=== PATIENT | male | born 1965 | race Caucasian/White ===

== ENCOUNTER 2019-05-28 10:18 | Emergency (ER) | payer SELFPAY ==
--- NOTE | 2019-05-28 10:28 | ER Document Report ---
ED General - General Stated Complaint: CHEST PAIN Time Seen by Provider: 05/28/19 10:23 Notes: 54-year-old male presents with chest pain. Gradual onset yesterday, left-sided radiating to the shoulder and neck has become 10 out of 10. Worse with palpation breathing and position. Similar to past pericarditis but slightly different. Positive shortness of breath and nausea, diaphoretic. EMS gave fentanyl only. EKG, per them, was normal. Allergic to NSAIDs no aspirin or nitro given. - Related Data Allergies/Adverse Reactions: NSAIDS (Non-Steroidal Anti-Inflamma Allergy (Unknown, Verified 05/28/19 10:38) Past Medical History - Social History Smoking Status: Current Every Day Smoker Smoking Education Provided: Yes - The patient ED visit today was directly related to their abuse of tobacco. Family History: None Review of Systems - Review of Systems Notes: REVIEW OF SYSTEMS GEN: Denies fever, chills, weight loss ENT: Denies sore throat, nasal discharge, ear pain EYES: Denies blurry vision, eye pain, discharge CV: Chest pain RESP: Ornis of breath GI: Denies abdominal pain, nausea, vomiting, diarrhea MSK: Denies joint pain/swelling, edema, SKIN: Rash on chest and abdomen for about a month LYMPH: Denies swollen glands/lymph nodes NEURO: Denies headache, focal weakness or numbness, dizziness PSYCH: Denies depression, suicidal or homicidal ideation PHYSICAL EXAMINATION General: Ill diaphoretic in acute distress Head: Atraumatic, normocephalic ENT: Mouth normal, oropharynx moist, no exudates or tonsillar enlargement Eyes: Conjunctiva normal, pupils equal, lids normal Neck: No JVD, supple, no guarding CVS: No murmur or rub, tachycardic, left-sided chest tenderness Resp: Apnea. No resp distress, equal and normal breath sounds bilaterally GI: Nondistended, soft, no tenderness to palpation, no rebound or guarding Ext: No deformities, no edema, normal range of motion in upper and lower ext Back: No CVA or midline TTP Skin: Good blanching patches, small and large up to 8 cm on the chest and back bilaterally Lymphatic: No lymphadeopathy noted Neuro: Awake, alert. Face symmetric. GCS 15. Physical Exam - Vital signs Vitals: Temp Resp Pulse Ox 98.0 F 27 H 95 05/28/19 10:26 05/28/19 10:26 05/28/19 10:26 Course - Re-evaluation Re-evalutation: 05/28/19 10:28 Gradual onset acute severe chest pain which has characteristics of both pericarditis acute coronary syndrome and aortic dissection as well as pulmonary embolus. Puzzling presentation the patient looks ill. We will do CTA chest abdomen pelvis to look aorta hopefully get pulmonary arteries in the picture, check troponin. Initial ECG does not show STEMI or obvious signs of pericarditis. Will avoid aspirin both for dissection and NSAID allergy and start with nitroglycerin and opioids if needed for pain. 05/28/19 11:[address] 1130. Pain is more severe. Patient diaphoretic. Vital signs still stable. He will be given 2 rounds of pain medswe will give more. CT is limited in scope but does not show central pulmonary emboli. He does show a left lower pleural-based mass, as well as a 4.8 cm ascending aortic aneurysm. Does not appear to be a dissection. I am concerned that this aneurysm is new and is causing the patient's pain. I am going to give him additional pain medication, and I have placed a call to [facility] to speak with cardiothoracic surgery. Do not believe the pleuralbased mass is causing his pain, and I would not expect a small pulmonary embolus, which would not be seen on the CT, to cause such pain. His troponin is negative and his EKG does not show STEMI or pericarditis. Blood pressure is currently 149/92, which is almost adequate for protection of his aortawill consider consider nicardipine drip. 05/28/19 12:18 Reevaluated 1215. Still in severe pain blood pressure is rising to the 200 range. Discussed with Nancy, physician clinical trials assistant for Dr. Daniel Clayton at [facility]. She has discussed the case with him, and states that unless there is a proven dissection or ruptured aneurysm. The patient is still in pain in the CT is sub-optimal. Will reorder a CT chest with contrast. I will start him on labetalol single dose followed by a drip of nicardipine. He will get further pain medication which will augment with ketamine. I am still concerned for an aortic disaster or esophageal perforation or other thoracic emergency given his presentation. I have initiated to transfer the hospitalist to [facility] via the transfer center as well. 05/28/19 13:[address] had a second CT which did not show dissection. Discussed with Dr. Stewart. I also discussed with Dr. Clayton, prior to that read, who except the patient in the emergency department at [facility]. He also recommended aggressive blood pressure lowering, which we underwent with metoprolol and nicardipine. 1:30 PM his blood pressure was 130 systolic and his pain was improved. I did order an echo but Dr. Boyer informed me that he would not be doing it because CT is the study of choice and he cannot do a transesophageal echo. 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 - Vital Signs Vital signs: Temp Pulse Resp BP Pulse Ox 99.5 F 18 169/102 H 89 L 05/28/19 12:01 05/28/19 12:01 05/28/19 12:01 05/28/19 12:01 - Laboratory Result Diagrams: 05/28/19 10:23 05/28/19 10:23 Laboratory results interpreted by me: 05/28/19 05/28/19 10:23 10:23 MCV 101 H MCH 34.2 H Lymphocytes % 9.8 L Glucose 118 H - Diagnostic Test Radiology reviewed: Image reviewed, Reports reviewed - EKG Interpretation by Me EKG shows normal: Sinus rhythm Rate: Tachycardia Rhythm: NSR - No acute ST or T wave changes, no obvious NV elevation or depression When compared to previous EKG there are: Previous EKG unavailable Critical Care Note - Critical Care Note Total time excluding time spent on procedures (mins): 72 Comments: The above patient is critically ill. Not including procedures, but including direct re-evaluations, speaking with patient and/or consultants, interpreting results, and documenting, I spent the total amount of minute listed listed above on critical care time Discharge - Discharge Clinical Impression: Hypertensive emergency Condition: Good Disposition: [facility]
[2019-05-28] MEDS: NITROGLYCERIN 0.4 MG/TAB 25 TAB/BOTTLE SL PRN ×2 (10:33→11:00)
[2019-05-28] MEDS ORDERED: FENTANYL CITRATE INJ/PF 100 MCG/2 ML AMPUL IV ONE (10:35)
[2019-05-28 10:43] LABS: ABSOLUTE BASOPHILS # (AUTO) 0.1 10^3/uL (0.0-0.2); ABSOLUTE EOSINOPHILS # (AUTO) 0.1 10^3/uL (0.0-0.6); ABSOLUTE MONOCYTES (AUTO) 1.2 10^3/uL (0.1-1.4); BASOPHILS % (AUTO) 0.7 % (0-2); EOSINOPHILS % (AUTO) 0.5 % (0-6); HEMATOCRIT 44.2 % (37.9-51.0); LYMPHOCYTES % (AUTO) 9.8 % (13-45); MEAN CORPUSCULAR HEMOGLOBIN 34.2 pg (27.0-33.4); MEAN CORPUSCULAR VOLUME 101 fl (80-97); MONOCYTES % (AUTO) 11.1 % (3-13); PLATELET COUNT 286 10^3/uL (150-450); RED BLOOD COUNT 4.39 10^6/uL (4.35-5.55); RED CELL DISTRIBUTION WIDTH 13.7 % (11.5-14.0); SEGMENTED NEUTROPHILS % (AUTO) 77.9 % (42-78); TOTAL CELLS COUNTED % (AUTO) 100 %; WHITE BLOOD COUNT 10.3 10^3/uL (4.0-10.5)
[2019-05-28 11:09] LABS: ANION GAP 11 (5-19); BLOOD UREA NITROGEN 10 mg/dL (7-20); CALCIUM 9.9 mg/dL (8.4-10.2); CARBON DIOXIDE 29 mmol/L (22-30); CHLORIDE 100 mmol/L (98-107); GLUCOSE 118 mg/dL (75-110); POTASSIUM 4.3 mmol/L (3.6-5.0)
[2019-05-28] MEDS ORDERED: HYDROMORPHONE HCL INJ/PF 2 MG/ML AMPULE IV ONE ×2 (11:17→12:16)
--- NOTE | 2019-05-28 11:26 | RADIOLOGY REPORT (SQ) ---
EXAM DESCRIPTION: CTA CHEST COMPLETED DATE/TIME: 05/28/2019 10:58 am REASON FOR STUDY: dissection COMPARISON: None. TECHNIQUE: CT scan of the chest performed using helical scanning technique with dynamic intravenous contrast injection. Images reviewed with lung, soft tissue and bone windows. Reconstructed coronal and sagittal MPR images reviewed. Additional 3 dimensional post-processing performed to develop Maximal Intensity Projection images (NC P). All images stored on PACS. All CT scanners at this facility use dose modulation, iterative reconstruction, and/or weight based d osing when appropriate to reduce radiation dose to as low as reasonably achievable (ALARA). [facility]: Dose Right [facility]: CareDose [facility]: Dose Right [facility]: Teradose 4D [facility]: Smart [employer] CONTRAST TYPE AND DOSE: 66 mL not recorded here. Referring the medical technologist prn notes. Contrast bolus optimized for the aorta, not for the pulmonary arteries. RENAL FUNCTION: Testing waived by the emergency room physician. RADIATION DOSE: CT Rad equipment meets quality standard of care and radiation dose reduction techniq ues were employed. CTDIvol: 9.0 - 17.0 mGy. DLP: 1226 mGy-cm. . LIMITATIONS: None. FINDINGS: LUNGS AND PLEURA: Mild lower lobe atelectatic changes. There is a 22 x 44.5 mm pleural-ba sed mass seen posteriorly in the left base. Small left pleural effusion. AORTA AND GREAT VESSELS: 47 mm aneurysm of the ascending aorta. No dissection. HEART: No pericardial effusion. No significant coronary artery calcifications. PULMONARY ARTERIES: Pulmonary arteries are suboptimally opacified. No obvious central pulmonary embo li. HILAR AND MEDIASTINAL STRUCTURES: No identified masses or abnormal nodes. HARDWARE: None in the chest. UPPER ABDOMEN: See separate report of the CT of the abdomen. THYROID AND OTHER SOFT TISSUES: No masses. No adenopathy. BONES: No acute or significant finding. 3D MIPS: Confirm above findings. OTHER: No other significant finding. IMPRESSION: 1. 47 mm aneurysm of the ascending aorta. No dissection. 2. 22 x 44.5 mm pleural-based mass in the left base. Recommend PET-CT. 3. No obvious central pulmonary embolus. Study limited with respect to the pulmonary arteries. COMMENT: Quality ID # 436: Final reports with documentation of one or more dose reduction techniques (e.g., Automated exposure control, adjustment of the mA and/or kV according to patient size, use of iterative reconstruction technique) TECHNICAL DOCUMENTATION: JOB ID: [id number] [employer] All Rights Reserved Reading location - IP/workstation name: [email or web address]
--- NOTE | 2019-05-28 11:35 | RADIOLOGY REPORT (SQ) ---
EXAM DESCRIPTION: CTA ABDOMEN/PELVIS W WO COMPLETED DATE/TIME: 05/28/2019 10:58 am REASON FOR STUDY: dissection COMPARISON: None. TECHNIQUE: CT scan of the abdominal aorta extending to the iliac bifurcation performed with intraven ous contrast using helical scanning technique with dynamic intravenous contrast injection. Images rev iewed with lung, soft tissue, and bone windows. Reconstructed coronal and sagittal MPR images reviewe d. All images stored on PACS. Advanced 3D imaging as volume rendering, MIPS, SSD performed? yes All CT scanners at this facility use dose modulation, iterative reconstruction, and/or weight based d osing when appropriate to reduce radiation dose to as low as reasonably achievable (ALARA). [facility]: Dose Right [facility]: CareDose [facility]: Dose Right [facility]: Teradose 4D [facility]: [id number] CONTRAST TYPE AND DOSE: See technologist's notes for contrast type and dose. RENAL FUNCTION: Testing waived by the emergency room physician. LIMITATIONS: None. FINDINGS: AORTA AND VESSELS: No aneurysm or dissection. Atherosclerosis is present with no signific ant celiac, SMA, or renal artery stenosis. LUNG BASES: See separate report for CT of the chest. LIVER: Normal size. No masses or dilated ducts. SPLEEN: Normal size. No focal lesions. PANCREAS: No masses or inflammation. Pancreatic duct is prominent. GALLBLADDER: No identified stones by CT criteria. No inflammatory changes to suggest cholecystitis. ADRENAL GLANDS: No significant masses or asymmetry. RIGHT KIDNEY AND URETER: No mass, calculi or urinary tract obstruction. LEFT KIDNEY AND URETER: No mass, calculi or urinary tract obstruction. RETROPERITONEUM: No retroperitoneal adenopathy, hemorrhage or masses. BOWEL AND PERITONEAL CAVITY: No masses or inflammatory changes. No free fluid or peritoneal masses. APPENDIX: Not identified. PELVIS: Urinary bladder is normal. No pelvic masses or fluid collections. ABDOMINAL WALL: No masses. No hernias. BONY STRUCTURES: No significant or acute findings. 3-D IMAGING: Confirms the above findings. OTHER: No other significant finding. IMPRESSION: Prominent pancreatic duct. No acute findings in the abdomen or pelvis. No aortic aneur ysm or dissection. TECHNICAL DOCUMENTATION: JOB ID: [id number] Quality ID # [id number]: Final reports with documentation of one or more dose reduction techniques (e.g., Au tomated exposure control, adjustment of the mA and/or kV according to patient size, use of iterative reconstruction technique) 2010 [employer]- All Rights Reserved Reading location - IP/workstation name: [email or web address]
--- NOTE | 2019-05-28 11:36 | RADIOLOGY REPORT (SQ) ---
EXAM DESCRIPTION: CHEST SINGLE VIEW COMPLETED DATE/TIME: 05/28/2019 11:00 am REASON FOR STUDY: cp COMPARISON: None. EXAM PARAMETERS: NUMBER OF VIEWS: One view. TECHNIQUE: Single frontal radiographic view of the chest acquired. RADIATION DOSE: NA LIMITATIONS: None. FINDINGS: LUNGS AND PLEURA: There is ill-defined opacification in the left base. MEDIASTINUM AND HILAR STRUCTURES: No masses. Contour normal. HEART AND VASCULAR STRUCTURES: Heart normal in size. Normal vasculature. BONES: No acute findings. HARDWARE: None in the chest. OTHER: No other significant finding. IMPRESSION: Mild airspace disease in the left base. Atelectasis versus pneumonia. TECHNICAL DOCUMENTATION: JOB ID: [id number] [employer]- All Rights Reserved Reading location - IP/workstation name: [email or web address]
[2019-05-28] MEDS ORDERED: LABETALOL HCL INJ 20 MG/4 ML DISP.SYRIN IV ONE (12:16)
[2019-05-28] MEDS ORDERED: KETAMINE HCL INJ 500 MG/10 ML VIAL IV ONE (12:16)
[2019-05-28] MEDS ORDERED: NICARDIPINE HCL RTU, ISO-OS 20 MG/200 ML RTUINJ IV PRN (12:17)
[2019-05-28] MEDS ORDERED: METOPROLOL TARTRATE PF/INJ 5 MG/5 ML SDV IV ONE (12:52)
--- NOTE | 2019-05-28 13:23 | RADIOLOGY REPORT (SQ) ---
EXAM DESCRIPTION: CTA CHEST COMPLETED DATE/TIME: 05/28/2019 1:02 pm REASON FOR STUDY: dissection?-- REPEAT. WILL TALK TO TOÑO. COMPARISON: 05/28/2019. TECHNIQUE: CTA was repeated due to finding of questionable small dissection flap in the distal desce nding thoracic aorta on the prior CT. The study was optimized to evaluate the thoracic aorta as oppo sed to the pulmonary arteries. CT scan of the chest performed using helical scanning technique with dynamic intravenous contrast inj ection. Images reviewed with lung, soft tissue and bone windows. Reconstructed coronal and sagittal MPR images reviewed. Additional 3 dimensional post-processing performed to develop Maximal Intensity Projection images (CO P). All images stored on PACS. All CT scanners at this facility use dose modulation, iterative reconstruction, and/or weight based d osing when appropriate to reduce radiation dose to as low as reasonably achievable (ALARA). [facility]: Dose Right [facility]: CareDose [facility]: Dose Right [facility]: Teradose 4D [facility]: [employer] CONTRAST TYPE AND DOSE: contrast/concentration: Isovue 350.00 mg/ml; Total Contrast Delivered: 61.0 ml; Total Saline Delivered: 30.0 ml Contrast bolus optimized for the thoracic aorta and not optimized for the pulmonary arteries. RENAL FUNCTION: Not available. RADIATION DOSE: CT Rad equipment meets quality standard of care and radiation dose reduction techniq ues were employed. CTDIvol: 14.9 - 16.5 mGy. DLP: 563 mGy-cm. . LIMITATIONS: None. FINDINGS: LUNGS AND PLEURA: Emphysematous changes. Small left pleural effusion. Streaky parenchyma l densities in the lung bases. Masslike subpleural density in the posterior left lung base. AORTA AND GREAT VESSELS: Mild dilation of the inferior ascending thoracic aorta, measuring 4.5 cm. C ould contrast bolus throughout the thoracic aorta with no evidence of dissection. HEART: No pericardial effusion. No significant coronary artery calcifications. PULMONARY ARTERIES: No emboli visualized in the main pulmonary arteries or the segmental branches. HILAR AND MEDIASTINAL STRUCTURES: No identified masses or abnormal nodes. HARDWARE: None in the chest. UPPER ABDOMEN: No significant findings. Limited exam. THYROID AND OTHER SOFT TISSUES: No masses. No adenopathy. BONES: No acute or significant finding. 3D MIPS: Confirm above findings. OTHER: No other significant finding. IMPRESSION: 1. 4.5 CM ASCENDING THORACIC AORTIC ANEURYSM. NO EVIDENCE OF DISSECTION IN THE THORACIC AORTA. THE QUESTIONABLE FINDING ON THE PREVIOUS CT SCAN APPEARS TO BE ARTIFACT DUE TO MOTION. 2. EMPHYSEMATOUS CHANGES. SMALL LEFT PLEURAL EFFUSION. STREAKY PARENCHYMAL DENSITIES IN THE LUNG BA SES. MASSLIKE SUBPLEURAL DENSITY IN THE POSTERIOR LEFT LUNG BASE. THESE FINDINGS WERE DESCRIBED ON THE PRIOR CT AND ARE UNCHANGED. COMMENT: Quality ID # 436: Final reports with documentation of one or more dose reduction techniques (e.g., Automated exposure control, adjustment of the mA and/or kV according to patient size, use of iterative reconstruction technique) TECHNICAL DOCUMENTATION: JOB ID: [id number] [employer]- All Rights Reserved Reading location - IP/workstation name: [email or web address]
[2019-05-28 13:39] VITALS: BP 176/105
--- NOTE | 2019-05-28 14:47 | EKG REPORT ---
SEVERITY:- ABNORMAL ECG - SINUS TACHYCARDIA LEFT ATRIAL ABNORMALITY : Confirmed by: Tasha oByer MD 28-May-2019 14:46:37
== END 2019-05-28 13:46 | disposition short-term general hospital (02) ==
LOC: ER 10:18
DX: I16.1 Hypertensive emergency (principal); I10 Essential (primary) hypertension; I71.2 Thoracic aortic aneurysm, without rupture; R91.8 Other nonspecific abnormal finding of lung field; R07.9 Chest pain, unspecified; R00.0 Tachycardia, unspecified; R06.02 Shortness of breath; R11.0 Nausea; R61 Generalized hyperhidrosis; R21 Rash and other nonspecific skin eruption; F17.200 Nicotine dependence, unspecified, uncomplicated; Z88.8 Allergy status to other drugs, medicaments and biological substances
CPT/HCPCS: 93005; 99291; 96374; 96375; 36415; 85025; 80048; 84484; 71045; 71275; 74174; 93010; J3010; J3490 ×2; J1170